=== PATIENT | female | born 1995 | race Caucasian/White ===

== ENCOUNTER 2017-06-25 02:40 | Inpatient (IN) | payer MEDICAID, OTHER ==
[~2017-06-25] VITALS: Ht 157.5 cm; Wt 63.0 kg
[~2017-06-25 02:40] MED LIST: ALBU8.5H5 INH; asthmanex
[2017-06-25] MEDS ORDERED: ACETAMINOPHEN 325 MG TABLET PO ONE (03:30)
[2017-06-25] MEDS ORDERED: ACETAMINOPHEN 650 MG/20.3 ML UDC ONE (03:33)
[2017-06-25] MEDS ORDERED: SODIUM CHLORIDE 0.9% 1,000 ML IV ONE (04:44)
[2017-06-25] MEDS ORDERED: SODIUM CHLORIDE 0.9% 1,000ML IVBOLUS ONE ×2 (05:00→09:30)
[2017-06-25 05:12] LABS: RAPID INFLUENZA A Negative (Negative); RAPID INFLUENZA B Negative (Negative)
[2017-06-25 05:22] LABS: ANION GAP 9 mmol/L (5-15); CHLORIDE 108 mmol/L (98-107)
[2017-06-25 05:30] LABS: MEAN CORPUSCULAR HEMOGLOBIN 26.8 pg (27.0-34.8); MEAN CORPUSCULAR HGB CONC 33.6 g/dL (32.4-35.8); MEAN CORPUSCULAR VOLUME 79.8 fL (80-100); PLATELET COUNT 295 x10^3/uL (130-400); RED BLOOD COUNT 4.75 x10^6/uL (3.82-5.3); RED CELL DISTRIBUTION WIDTH 16.5 % (9.6-15.2)
[2017-06-25 05:33] LABS: ALANINE AMINOTRANSFERASE 24 U/L (12-78); ALKALINE PHOSPHATASE 58 U/L (45-117); BILIRUBIN,TOTAL 0.8 mg/dL (0.2-1.0); CREATININE 0.77 mg/dL (0.55-1.02); TOTAL PROTEIN 7.4 g/dL (6.4-8.2)
[2017-06-25 05:57] LABS: MD YES
[2017-06-25 05:58] LABS: BAND#(MANUAL) 3.42 x10^3/uL; BANDS%(MANUAL) 15 % (0-7); LYMPH#(MANUAL) 1.37 x10^3/uL (1-6.1); LYMPHS% (MANUAL) 6 % (22-44); MONOS#(MANUAL) 0.23 x10^3/uL (0.3-2.7); MONOS% (MANUAL) 1 % (2-9); SEG#(MANUAL) 17.78 x10^3/uL (1.8-8); SEGS% (MANUAL) 78 % (42-75)
[2017-06-25 06:00] LABS: <PLATELET ESTIMATE> ADEQUATE; <PLT MORPHOLOGY> NORMAL PLT MORPH; ANISOCYTOSIS 1+
[2017-06-25 06:39] LABS: CULTURE INDICATED? YES; MICROSCOPIC INDICATED
[2017-06-25] MEDS ORDERED: ONDANSETRON 2MG/ML, 2ML ONE (08:10)
[2017-06-25] MEDS ORDERED: OMNIPAQUE 350 MG/ML, 100ML BOTTLE ONE (08:27)
[2017-06-25] MEDS ORDERED: ONDANSETRON 2MG/ML, 2ML IVPush ONE (08:30)
[2017-06-25 09:35] LABS: MICROSCOPIC NOT IND
[2017-06-25 09:42] LABS: CULTURE INDICATED? NO
[2017-06-25] MEDS ORDERED: CIPROFLOXACIN/PMX 400MG/200ML 100 ML IVPB ONE (10:00)
[2017-06-25] MEDS ORDERED: METRONIDAZOLE PMX 500MG/100ML 100 ML IVPB ONE (10:00)
[2017-06-25] MEDS ORDERED: METRONIDAZOLE PMX 500MG/100ML 100 ML ONE (10:10)
[2017-06-25] MEDS ORDERED: CIPROFLOXACIN/PMX 400MG/200ML 0 ML ONE (10:11)
[2017-06-25 11:24] VITALS: BP 99/61
[2017-06-25] MEDS ORDERED: SODIUM CHLORIDE 0.9% 1,000 ML IV SCH (11:28)
[2017-06-25] MEDS ORDERED: PROMETHAZINE 25 MG/ML, 1ML IM PRN (11:30)
[2017-06-25] MEDS ORDERED: morphine SULFATE 10 MG/ML, 1ML IVPush PRN (11:30)
[2017-06-25] MEDS: ACETAMINOPHEN 325 MG TABLET PO PRN ×3 (12:03→20:28)
[2017-06-25] MEDS: CIPROFLOXACIN/PMX 400MG/200ML 200 ML IV SCH ×2 (12:04→23:23)
[2017-06-25] MEDS: METRONIDAZOLE PMX 500MG/100ML 100 ML IV SCH ×2 (13:17→18:53)
[2017-06-25] MEDS ORDERED: POTASSIUM CHLORIDE 20 MEQ in SODIUM CHLORIDE 0.9% 1,000 ML IV SCH (13:30)
[2017-06-25] MEDS: POTASSIUM CHLORIDE 20 MEQ in SODIUM CHLORIDE 0.9% 1,000 ML IV SCH ×2 (15:16→21:43)
[2017-06-25] MEDS: ENOXAPARIN 40 MG/0.4 ML SQ SCH (16:01)
[2017-06-25 16:04] VITALS: BP 96/59
[2017-06-25 19:25] VITALS: BP 101/63
[2017-06-25] MEDS: ONDANSETRON 2MG/ML, 2ML IVPush PRN (20:28)
[2017-06-26] MEDS: METRONIDAZOLE PMX 500MG/100ML 100 ML IV SCH ×4 (01:31→19:25)
[2017-06-26 02:21] LABS: CLOSTRIDIUM DIFFICILE ANTIGEN NEGATIVE; CLOSTRIDIUM DIFFICILE TOXIN NEGATIVE (Negative)
[2017-06-26 02:24] VITALS: BP 95/56
[2017-06-26 04:18] LABS: CRYPTOSPORIDIUM ANTIGEN Negative (Negative)
[2017-06-26 05:17] LABS: BASOPHILS # (AUTO) 0.03 x10^3/uL (0-0.3); BASOPHILS % (AUTO) 0 % (0-1); EOSINOPHILS # (AUTO) 0.01 x10^3/uL (0-0.8); EOSINOPHILS % (AUTO) 0 % (1-7); LYMPHOCYTES # (AUTO) 1.28 x10^3/uL (1-6.1); LYMPHOCYTES % (AUTO) 9 % (22-44); MD NO; MEAN CORPUSCULAR HEMOGLOBIN 26.1 pg (27.0-34.8); MEAN CORPUSCULAR HGB CONC 32.2 g/dL (32.4-35.8); MEAN PLATELET VOLUME 7.8 fL (7.4-10.4); MONOCYTES # (AUTO) 0.58 x10^3/uL (0-1.4); MONOCYTES % (AUTO) 4 % (2-9); NEUTROPHILS # (AUTO) 12.28 x10^3/uL (1.8-8.0); NEUTROPHILS % (AUTO) 87 % (42-75); PLATELET COUNT 247 x10^3/uL (130-400); RED BLOOD COUNT 4.46 x10^6/uL (3.82-5.3); RED CELL DISTRIBUTION WIDTH 16.5 % (9.6-15.2)
[2017-06-26 05:22] LABS: CHLORIDE 110 mmol/L (98-107)
[2017-06-26 05:29] LABS: ALANINE AMINOTRANSFERASE 24 U/L (12-78); ALBUMIN 3.1 g/dL (3.4-5.0); ALKALINE PHOSPHATASE 46 U/L (45-117); ANION GAP 7 mmol/L (5-15); BILIRUBIN,TOTAL 0.7 mg/dL (0.2-1.0); CREATININE 0.57 mg/dL (0.55-1.02); TOTAL PROTEIN 6.2 g/dL (6.4-8.2)
[2017-06-26] MEDS ORDERED: OXYcodone/APAP 5/325MG TABLET ONE (06:34)
[2017-06-26] MEDS: POTASSIUM CHLORIDE 20 MEQ in SODIUM CHLORIDE 0.9% 1,000 ML IV SCH ×2 (06:36→20:59)
[2017-06-26] MEDS: OXYcodone/APAP 5/325MG TABLET PO PRN ×3 (06:36→19:31)
[2017-06-26 07:44] VITALS: BP 99/59
[2017-06-26] MEDS: ONDANSETRON 2MG/ML, 2ML IVPush PRN (08:57)
[2017-06-26] MEDS ORDERED: POTASSIUM CHLORIDE 20 MEQ in SODIUM CHLORIDE 0.9% 1,000 ML IV SCH (11:28)
[2017-06-26] MEDS: SIMETHICONE 125 MG CHEW TAB PO SCH ×3 (11:31→20:59)
[2017-06-26] MEDS: CIPROFLOXACIN/PMX 400MG/200ML 200 ML IV SCH ×2 (11:32→23:10)
[2017-06-26 13:16] VITALS: BP 109/69
[2017-06-26] MEDS: ACETAMINOPHEN 325 MG TABLET PO PRN (15:07)
[2017-06-26] MEDS: ENOXAPARIN 40 MG/0.4 ML SQ SCH (16:40)
[2017-06-26 19:29] VITALS: BP 110/74
[2017-06-26] MEDS: KETOROLAC 30 MG/1 ML IVPush PRN (20:59)
[2017-06-27] MEDS: METRONIDAZOLE PMX 500MG/100ML 100 ML IV SCH ×3 (01:14→14:38)
[2017-06-27 02:22] VITALS: BP 95/57
[2017-06-27 05:32] LABS: BASOPHILS # (AUTO) 0.04 x10^3/uL (0-0.3); BASOPHILS % (AUTO) 0 % (0-1); EOSINOPHILS # (AUTO) 0.25 x10^3/uL (0-0.8); EOSINOPHILS % (AUTO) 3 % (1-7); LYMPHOCYTES # (AUTO) 1.54 x10^3/uL (1-6.1); LYMPHOCYTES % (AUTO) 16 % (22-44); MD NO; MEAN CORPUSCULAR HEMOGLOBIN 26.6 pg (27.0-34.8); MEAN CORPUSCULAR HGB CONC 32.7 g/dL (32.4-35.8); MEAN CORPUSCULAR VOLUME 81.3 fL (80-100); MEAN PLATELET VOLUME 7.7 fL (7.4-10.4); MONOCYTES # (AUTO) 0.92 x10^3/uL (0-1.4); MONOCYTES % (AUTO) 9 % (2-9); NEUTROPHILS # (AUTO) 7.17 x10^3/uL (1.8-8.0); NEUTROPHILS % (AUTO) 72 % (42-75); PLATELET COUNT 235 x10^3/uL (130-400); RED BLOOD COUNT 4.23 x10^6/uL (3.82-5.3); RED CELL DISTRIBUTION WIDTH 16.5 % (9.6-15.2)
[2017-06-27 05:36] LABS: ANION GAP 9 mmol/L (5-15); CALCIUM 7.7 mg/dL (8.5-10.1); CHLORIDE 109 mmol/L (98-107)
[2017-06-27 05:38] LABS: CREATININE 0.47 mg/dL (0.55-1.02)
[2017-06-27 07:08] VITALS: BP 95/61
[2017-06-27] MEDS: KETOROLAC 30 MG/1 ML IVPush PRN ×2 (07:34→13:26)
[2017-06-27] MEDS: SIMETHICONE 125 MG CHEW TAB PO SCH ×3 (07:35→16:00)
[2017-06-27] MEDS: CIPROFLOXACIN/PMX 400MG/200ML 200 ML IV SCH (11:59)
[2017-06-27] MEDS: POTASSIUM CHLORIDE 20 MEQ in SODIUM CHLORIDE 0.9% 1,000 ML IV SCH (11:59)
[2017-06-27 12:51] VITALS: BP 102/68
[2017-06-27 13:30] VITALS: BP 108/73
[2017-06-27] MEDS ORDERED: METR500T PO (15:17)
[2017-06-27] MEDS ORDERED: CIPR500T87 PO (15:17)
[2017-06-27] MEDS ORDERED: ACET650S21 PO (15:18)
[2017-06-27] MEDS: ENOXAPARIN 40 MG/0.4 ML SQ SCH (16:47)
== END 2017-06-27 18:10 | disposition home or self-care (01) | DRG 872 ==
LOC: ED 03:52 → EDIP 10:13 → 3NE 11:06
PROVIDERS: ADMIT Hospitalist; ATTEND Hospitalist
PROC: 0T9B70Z Drainage of Bladder with Drainage Device, Via Natural or Artificial Opening (ICD-10-PCS; principal; 2017-06-25)
DX: A41.9 Sepsis, unspecified organism (principal); A09 Infectious gastroenteritis and colitis, unspecified; E87.6 Hypokalemia; I88.0 Nonspecific mesenteric lymphadenitis; J45.909 Unspecified asthma, uncomplicated; Z82.3 Family history of stroke; Z82.49 Family history of ischemic heart disease and other diseases of the circulatory system; Z83.3 Family history of diabetes mellitus
CPT/HCPCS: 36415; 71046; 74177; 80048; 80053; 81001; 81003; 83605; 83690; 83735; 84100; 84145; 84703; 85025; 87040; 87086; 87324; 87328; 87329; 87400; 89055; 93005; 96361; 96365; 96375; J0744; J1885; J2405; J3480; Q9967; J7030

== ENCOUNTER → 2017-12-11 | Outpatient (CLI) | payer OTHER ==
[~2017-12-11] MED LIST changes: +ACET650S21 PO; +CIPR500T87 PO; +METR500T PO
== END | disposition home or self-care (01) ==
LOC: CFH 08:39
PROVIDERS: ATTEND Nurse Practitioner
DX: R10.30 Lower abdominal pain, unspecified (principal)
CPT/HCPCS: 76856